=== PATIENT | female | born 2000 | race Caucasian/White ===

== ENCOUNTER 2021-10-14 13:03 | Emergency (ER) | payer OTHER, SELFPAY ==
[2021-10-14 13:16] VITALS: BP 119/59; PULSE 94; RESP 16; TEMP 37.2; O2SAT 100
--- NOTE | 2021-10-14 14:23 | ED.FEMALEGU ---
HPI - Female Genitourinary General Chief complaint: Urogenital-Female Stated complaint: Kidney pain, Urinary pain. Time Seen by Provider: 10/14/21 14:23 Source: patient Mode of arrival: ambulatory Limitations: no limitations History of Present Illness HPI Narrative: Adolfo Mcneill is a 20 yo female with a PMH of renal stones and Crohn's disease who comes to the [facility] with a few days of dysuria and left-sided flank discomfort-has some CVA tenderness and burning with urination Related Data Home Medications Medication Instructions Recorded Confirmed Humira 10/14/21 ferrous sulfate 10/14/21 folic acid 10/14/21 omeprazole 10/14/21 Allergies Allergy/AdvReac Type Severity Reaction Status Date / Time Cat Dander Allergy Intermediate sneezing Uncoded 09/22/15 15:23 Review of Systems Review of Systems: CONSTITUTIONAL: Denies fever, chills, sweats. EYES: Denies visual changes, redness, discharge. ENT: Denies rhinorrhea, congestion, sore throat, otalgia. CARDIOVASCULAR: Denies chest pain, palpitations, edema. RESPIRATORY: Denies dyspnea, wheezing, cough GASTROINTESTINAL: Denies abdominal pain, nausea, vomiting, diarrhea. GENITOURINARY: Has dysuria, hematuria, abnormal discharge SKIN: Denies rash or itching. NEUROLOGIC: Denies numbness, or focal weakness. PSYCHIATRIC: Denies anxiety or depression. [facility] Past Medical History Medical History Crohn's disease Renal cyst Renal stone Social History Social History (Updated 10/14/21 @ 14:35 by Cassidy Monreal CNP) Smoking status: Never smoker Alcohol intake: current Comments At time of signature, I agree with nursing past medical, surgical, social and family history. There is no relevant family history pertinent to the presenting complaint Exam Narrative: GENERAL: This is a well-nourished, well-developed patient, in mild distress. HEAD: normocephalic, atraumatic. EYES: Sclera clear/white. Vision is grossly intact. EARS: External ears normal, Hearing grossly intact. NOSE: External nose normal without nasal discharge, nares without redness, no rhinorrhea. THROAT: Mucous membranes moist, NECK: Neck supple, non-tender CARDIOVASCULAR: Regular rate and rhythm without murmurs, gallops, or rubs. RESPIRATORY: Clear to auscultation. Breath sounds equal bilaterally. No wheezes, rales, or rhonchi. GASTROINTESTINAL: Abdomen soft, L CVA tenderness SKIN: warm, intact with no suspicious lesions or rash, good texture and turgor. NEURO: awake, alert, and oriented to person, place and time. There were no obvious focal neurologic abnormalities. Steady gait EXTREMITIES: Normal range of motion. BACK: Nontender without deformity Course Course Emergency Course: She here with left-sided CVA tenderness and dysuria UA shows blood only but patient states has had the symptoms prior Patient started on Keflex 500 mg 1 twice daily x5 days If symptoms improve or pain worsens or she begins to run a fever she is to go to the ER; follow-up is with her person treating her urinary symptoms Vital Signs Vital signs: Vital Signs Temperature 99.0 F 10/14/21 13:16 Pulse Rate 94 10/14/21 13:16 Respiratory Rate 16 10/14/21 13:16 Blood Pressure 119/59 L 10/14/21 13:16 Pulse Oximetry 100 10/14/21 13:16 Temperature 99.0 F 10/14/21 13:16 Pulse Rate 94 10/14/21 13:16 Respiratory Rate 16 10/14/21 13:16 Blood Pressure 119/59 L 10/14/21 13:16 Pulse Oximetry 100 10/14/21 13:16 MDM - Female Genitourinary Differential Diagnosis Differential diagnosis: Likely urinary tract infection and other Lab Data Labs: Urine Glucose Negative Reference Range: Negative Urine Bilirubin Negative Reference Range: Negative Urine Ketone Negative
== END 2021-10-14 14:42 | disposition home or self-care (01) ==
PROVIDERS: Emergency Provider Nurse Practitioner
DX: R30.0 Dysuria (principal); K50.90 Crohn's disease, unspecified, without complications
CPT/HCPCS: 81003; 87077; 87086; 87088; 87186; 99213; G0463

== ENCOUNTER 2022-03-06 17:49 | Emergency (ER) | payer OTHER, SELFPAY ==
[2022-03-06 18:14] VITALS: BP 120/73; PULSE 78; RESP 12; TEMP 36.4; O2SAT 100
--- NOTE | 2022-03-06 18:29 | ED.FEMALEGU ---
HPI - Female Genitourinary General Chief complaint: Urogenital-Female Stated complaint: discharge, vaginal odor Time Seen by Provider: 03/06/22 18:29 Source: patient Mode of arrival: ambulatory Limitations: no limitations History of Present Illness HPI Narrative: Adolfo Mcneill is a 21-year-old female with a PMH of anemia, ulcerative colitis, and GERD who comes to [facility] with complaints of vaginal discharge with odor has been present for a few days. She has not tried anything [id number]. Is also never had a pelvic exam before. She lives with her father who did not think she needed to get examinations for female issues. she has a partner that she has irregular sex with, for past 4-5 months Related Data Home Medications Medication Instructions Recorded Confirmed ferrous sulfate 10/14/21 omeprazole 20 mg PO DAILY 10/14/21 03/06/22 Allergies Allergy/AdvReac Type Severity Reaction Status Date / Time Cat Dander Allergy Intermediate sneezing Uncoded 03/06/22 18:15 Review of Systems Review of Systems: CONSTITUTIONAL: Denies fever, chills, sweats. EYES: Denies visual changes, redness, discharge. ENT: Denies rhinorrhea, congestion, sore throat, otalgia. CARDIOVASCULAR: Denies chest pain, palpitations, edema. RESPIRATORY: Denies dyspnea, wheezing, cough GASTROINTESTINAL: Denies abdominal pain, nausea, vomiting, diarrhea. GENITOURINARY: Denies dysuria, hematuria, has abnormal vaginal discharge SKIN: Denies rash or itching. NEUROLOGIC: Denies numbness, or focal weakness. PSYCHIATRIC: Denies anxiety or depression. [facility] Past Medical History Medical History Crohn's disease Renal cyst Renal stone Social History Social History Smoking status: Never smoker Alcohol intake: current Comments At time of signature, I agree with nursing past medical, surgical, social and family history. There is no relevant family history pertinent to the presenting complaint. Exam Narrative: GENERAL: This is a well-nourished, well-developed patient, in mild distress. HEAD: normocephalic, atraumatic. EYES: . Sclera clear/white. Vision is grossly intact. EARS: External ears normal, Hearing grossly intact. NOSE: External nose normal without nasal discharge, nares without redness, no rhinorrhea. THROAT: Mucous membranes moist, NECK: Neck supple, non-tender CARDIOVASCULAR: Regular rate and rhythm without murmurs, gallops, or rubs. RESPIRATORY: Clear to auscultation. Breath sounds equal bilaterally. No wheezes, rales, or rhonchi. GASTROINTESTINAL: Abdomen soft, non-tender, SKIN: warm, intact with no suspicious lesions or rash, good texture and turgor. NEURO: awake, alert, and oriented to person, place and time. There were no obvious focal neurologic abnormalities. Steady gait EXTREMITIES: Normal range of motion. BACK: Nontender without deformity pelvic exam: copious amounts of yellow and white discharge, no itching, vaginal vault erythematous and tender Course Course Emergency Course: Patient here with vaginal discharge Urine specimen obtained and sent for STD evaluation Given Rocephin here, prescription for doxycycline and metronidazole with Diflucan when completes antibiotic Discussed getting an [employer] since this is her first pelvic exam; and need for regular exam of her cervix, [place] that she can talk to about female health Level of Care: Express Care Visit Vital Signs Vital signs: Vital Signs Temperature 97.5 F L 03/06/22 18:14 Pulse Rate 78 03/06/22 18:14 Respiratory Rate 12 03/06/22 18:14 Blood Pressure 120/73 03/06/22 18:14 Pulse Oximetry 100 03/06/22 18:14 Temperature 97.5 F L 03/06/22 18:14 Pulse Rate 78 03/06/22 18:14 Respiratory Rate 12 03/06/22 18:14 Blood Pressure 120/73 03/06/22 18:14 Pulse Oximetry 100 03/06/22 18:14 MDM - Female Genitourinary Differential
[2022-03-06] MEDS: cefTRIAXone 500 MG, LIDOCAINE HCL 1% LOCAL INJ 1 ML IM (18:56)
== END 2022-03-06 19:25 | disposition home or self-care (01) ==
PROVIDERS: Emergency Provider Nurse Practitioner
DX: N89.8 Other specified noninflammatory disorders of vagina (principal); Z20.2 Contact with and (suspected) exposure to infections with a predominantly sexual mode of transmission; K50.90 Crohn's disease, unspecified, without complications
CPT/HCPCS: 87491; 87591; 87661; 96372; 99214; G0463; J0696

== ENCOUNTER 2022-04-01 13:14 | Emergency (ER) | payer OTHER, SELFPAY ==
--- NOTE | ~2022-04-01 | XR_ITS ---
EXAMINATION: XR hand RT min 3V DATE: 04/01/2022 13:35 INDICATION: Pain at the proximal right fifth metacarpal after punching a wall TECHNIQUE: Posteroanterior, oblique and lateral views of the right hand were obtained. COMPARISON: None. FINDINGS: Alignment is normal. No fracture. Joint spaces are normal. Soft tissues are unremarkable. IMPRESSION: 1. Negative right hand radiographs. Reviewed, dictated and finalized at location A.
[2022-04-01 13:21] VITALS: BP 120/82; PULSE 84; RESP 16; TEMP 37.2; O2SAT 99
--- NOTE | 2022-04-01 13:50 | ED.UPPEXIN ---
HPI - Extremity Injury (Upper) General Chief Complaint: Extremity Injury, Upper Stated Complaint: INJURED R HAND Time Seen by Provider: 04/01/22 13:45 Source: patient Mode of arrival: ambulatory Limitations: no limitations History of Present Illness HPI narrative: Patient presents today with a right hand injury. She punched a wall last night. Currently rates her pain 5/10 and has tried no [id number] interventions for symptoms prior to arrival. Denies numbness or tingling. Related Data Home Medications Medication Instructions Recorded Confirmed ferrous sulfate 1 tab-cap PO USEASDIRECTD 10/14/21 03/06/22 omeprazole 20 mg PO DAILY 10/14/21 03/06/22 Allergies Allergy/AdvReac Type Severity Reaction Status Date / Time Cat Dander Allergy Intermediate sneezing Uncoded 03/31/22 16:39 Review of Systems Review of Systems: CONSTITUTIONAL: Denies body aches, fever, chills, or sweats. EYES: Denies visual changes, redness, or discharge. ENT: Denies rhinorrhea, congestion, sore throat, or otalgia. CARDIOVASCULAR: Denies chest pain, palpitations, or edema. RESPIRATORY: Denies cough or dyspnea. GASTROINTESTINAL: Denies abdominal pain, nausea, vomiting, or diarrhea. GENITOURINARY: Denies dysuria or hematuria. SKIN: Denies rash, itching, or wounds. MUSCULOSKELETAL: Denies back pain, or myalgia.+ Right hand injury NEUROLOGIC: Denies headache, numbness, tingling, or weakness. PSYCH: Denies depression or anxiety. [facility] Past Medical History Medical History Crohn's disease Renal cyst Renal stone Social History Social History Smoking status: Never smoker Alcohol intake: current Comments At time of signature, I have reviewed and agree with nursing past medical, surgical, social and family history unless otherwise noted. Please see nursing chart for further information. There is no relevant family history pertinent to the presenting complaint Exam Narrative: GENERAL: Well-appearing, well-nourished, and in no acute distress. HEAD: Normocephalic, atraumatic. EYES: EOMI. No redness or drainage. Conjunctivae normal. ENT: Mucous membranes pink and moist. NECK: Normal AROM. CHEST: No respiratory distress. EXTREMITIES: Right hand: Tenderness to the right fifth finger, extending down the right fifth metacarpal with scant edema and ecchymosis. Distal sensation intact in all 5 fingers. Capillary refill normal. Radial pulse normal. Full range of motion of all fingers and wrist. No snuffbox tenderness. SKIN: Warm, dry, no rash. Capillary refill normal. Normal skin turgor. NEURO: No focal deficits. Alert and oriented x3. Gait steady. PSYCH: Normal affect. No signs of depression or anxiety. Course Course Level of Care: Express Care Visit Vital Signs Vital signs: Vital Signs Temperature 98.9 F 04/01/22 13:21 Pulse Rate 84 04/01/22 13:21 Respiratory Rate 16 04/01/22 13:21 Blood Pressure 120/82 04/01/22 13:21 Pulse Oximetry 99 04/01/22 13:21 Oxygen Delivery Room Air 04/01/22 13:21 Temperature 98.9 F 04/01/22 13:21 Pulse Rate 84 04/01/22 13:21 Respiratory Rate 16 04/01/22 13:21 Blood Pressure 120/82 04/01/22 13:21 Pulse Oximetry 99 04/01/22 13:21 Oxygen Delivery Room Air 04/01/22 13:21 Reviewed. Pt has been instructed to follow up with her PCP regarding her elevated blood pressure today. MDM - Extremity Injury (Upper) Differential Diagnosis Differential diagnosis: Likely sprain and strain of wrist, fracture of wrist, fracture of hand and other (Finger fracture, contusion) Imaging Data Radiologist's impression: ITS Impressions Hand X-Ray 04/01/22 13:37 IMPRESSION: 1. Negative right hand radiographs. Critical Care Time Critical Care Time Critical Care Time: No Discharge Plan Discharge Clinical Impression: Contusion o
== END 2022-04-01 14:00 | disposition home or self-care (01) ==
PROVIDERS: Emergency Provider Nurse Practitioner
DX: S60.221A Contusion of right hand, initial encounter (principal); W22.8XXA Striking against or struck by other objects, initial encounter; K50.90 Crohn's disease, unspecified, without complications
CPT/HCPCS: 73130; 99213; G0463